=== PATIENT | female | born 1985 | race Caucasian/White ===

== ENCOUNTER 2024-12-19 22:00 | Emergency (ER) | payer OTHER, SELFPAY ==
[2024-12-19 22:00] VITALS: BP 118/77
[2024-12-19 22:23] LABS: Hematocrit 34.8 % (37.0-47.0); Hemoglobin 12.6 g/dL (12.0-16.0); Mean Corp Hgb Conc. 36.2 g/dL (33.0-37.0); Mean Corpuscular Volume 86.4 fL (81.0-99.0); Nucleated Red Blood Cells % 0 %; Platelet Count 236 10^3/uL (130-400); Red Cell Dist. Width 11.9 % (11.5-14.5)
[2024-12-19 22:41] LABS: HCG, Serum Qualitative Screen Negative
[2024-12-19 22:45] LABS: ALT (SGPT) 26 U/L (0-35); AST (SGOT) 24 U/L (14-36); Albumin 4.4 g/dl (3.5-5.0); Alkaline Phosphatase 49 U/L (38-126); Blood Urea Nitrogen 14 mg/dl (7-17); Calcium 8.8 mg/dl (8.4-10.2); Carbon Dioxide 25 mmol/L (22-30); Chloride 104 mmol/L (98-107); Glucose 92 mg/dl (70-99); Potassium 3.7 mmol/L (3.5-5.1); Sodium 136 mmol/L (135-145); Total Protein 7.2 g/dl (6.3-8.2); eGFR > 60.00
[2024-12-19 22:46] LABS: Troponin I < 0.012 ng/ml
[2024-12-20 00:01] VITALS: BMI 28.8
[2024-12-20 00:03] VITALS: BP 105/64
[2024-12-20 00:05] VITALS: BP 105/64
[2024-12-20 01:00] VITALS: BP 101/67
[2024-12-20 02:00] VITALS: BP 97/60
[2024-12-20 02:01] LABS: Glucose - Point of Care 86 mg/dl (70-99)
[2024-12-20 02:55] LABS: Troponin I < 0.012 ng/ml
--- NOTE | 2024-12-20 03:20 | ED.GENMED ---
History of Present Illness
General
Chief Complaint: Cardiac Symptoms
Source: patient
Exam Limitations: none
Time Seen by Provider: 12/20/24 01:12
Nursing documentation reviewed up to this point in time: agreed with
History of Present Illness
History of Present Illness:
39-year-old female presenting to the [facility] today after felt some chest discomfort with a low glucose level while at a concert prior to arrival. Feels much better at this point. Denies nausea vomiting shortness of breath. EKG normal on arrival.
She denies any recent trauma surgery immobilization
Review of Systems
Review of Systems
Allergies reviewed?: Yes
All Other Systems: ROS reviewed and negative except as documented in HPI and ROS
Phy Exam
Physical Exam
Physical Exam:
GENERAL: Alert , in no apparent distress
EYE: pupils equal and reactive
NECK: Supple, no significant adenopathy.
ENT: o/p clr, mmm.
CARDIAC: Regular rate and rhythm .
LUNGS: Clear breath sounds bilaterally, no acute respiratory distress, no wheezes/rales/rhonchi
ABDOMEN: Soft, without focal tenderness, no r/g, no cvat
NEUROLOGICAL: Alert and oriented, no focal neuro deficits
SKIN: Warm and dry, skin intact.
MUSCULOSKELETAL: No edema, well perfused.
PSYCH: Normal and appropriate interaction.
Course
Orders/Labs/Results
Orders:
Orders
12/19/24 22:01
Electrocardiogram (*1) Urgent
Reason for Study: Chest Pain
EKG- Treatment ONCE
12/19/24 22:02
Test Result ONCE
12/19/24 22:15
Complete Blood Count/With Diff Urgent
Comprehensive Metabolic Panel Urgent
HCG, Serum Qualitative Screen Urgent
Comment: Notify provider if positive test present
Troponin I Urgent
12/20/24 01:47
Electrocardiogram (*1) Urgent
Reason for Study: Chest Pain
Bedside Glucose- Treatment ONCE
EKG- Treatment ONCE
Chest [CR Chest - 2 Views ] Urgent
Comment:
Reason For Exam: cp
12/20/24 02:03
Troponin I Urgent
Abnormal Lab Results
12/19/24
22:15
RBC 4.03 L 10^6/uL
(4.20-5.40)
Hct 34.8 L %
(37.0-47.0)
MCH 31.3 H pg
(27.0-31.0)
Absolute Lymphs (auto) 0.7 L 10^3/uL
(1.2-3.4)
Neutrophils % 78.7 H %
(42.2-75.2)
Lymphocytes % 9.9 L %
(20.5-51.1)
12/19/24 22:15
12/19/24 22:15
Vital Signs
Initial and Last Documented VS:
Initial Vital Signs
Temp Pulse Resp BP Pulse Ox
98.3 F 80 16 118/77 100
12/19/24 22:00 12/19/24 22:00 12/19/24 22:00 12/19/24 22:00 12/19/24 22:00
Last Documented Vital Signs
Temp Pulse Resp BP Pulse Ox
98.3 F 69 15 97/60 97
12/19/24 22:00 12/20/24 02:15 12/20/24 02:15 12/20/24 02:00 12/20/24 03:22
MDM/Problems Addressed
MDM/Problems Addressed:
39-year-old female presenting to the emergency department today with concerns of chest pain low sugar level prior to arrival. Symptoms now resolved. Labs unremarkable here troponin negative x 2 EKG unchanged vital signs normal. Patient
well-appearing stable for close outpatient follow-up. Return precautions given.
*Pulse Oximetry
SaO2: 97
Oxygen Mode of Delivery: Room air
Patient hypoxic: no (97)
*Critical Care Note
Total Time (30-74mins, 75-104mins- exclusive of procedures): Not Applicable
ED Attending Note
-
Portions of this chart may have been created with voice recognition software.� Occasional wrong word or��sound alike� substitutions may have occurred due to the inherent limitations of voice recognition software.
Discharge Plan
Departure
Patient Disposition: Home (Routine Discharge)
Date of Disposition: 12/20/24
Time of Disposition: 03:20
Patient with high blood pressure during this ER visit?: No
Condition: Good
Covid-19: Not Applicable
Discharge Problem:
Chest pain
Instructions: Chest Pain (DC)
Prescriptions:
No Action
Wegovy 2.4 mg/0.75 mL Pen Injector
2.4 mg SC QWEEK
Rx Instructions:
takes on wednesdays
Referrals:
UNKNOWN - PT DOES,NOT KNOW [Family Provider]
Activity Restrictions/Additional Instructions:
You came to the emergency department today with concerns of chest pain and low glucose prior to arrival. Here you had a reassuring assessment. Please follow closely with your primary care doctor. Return for any worsening, new or concerning
symptoms.
Interventions
Interventions:
*Risk Screen - Suicide Last Done: 12/19/24 22:00
*General Assessment Last Done: 12/20/24 00:01
*Neglect/Abuse Screening Last Done: 12/19/24 22:00
*ED- Fall Risk Assessment Last Done: 12/19/24 22:00
*ED COVID-19 Vaccine History Last Done: 12/20/24 00:01
ED- Pulmonary Assessment Last Done: 12/20/24 00:01
ED- Cardiac Assessment Last Done: 12/20/24 00:01
Discharge Date and Time
Print Language: ALGERIAN
== END 2024-12-20 03:49 | disposition home or self-care (01) ==
LOC: EMR 22:00
PROVIDERS: Physician Assistant; Student in an Organized Health Care Education/Training Program; EMERGENCY PHYSICIAN Emergency Medicine
DX: R07.89 Other chest pain (principal); E16.2 Hypoglycemia, unspecified; K76.0 Fatty (change of) liver, not elsewhere classified; Z91.018 Allergy to other foods
CPT/HCPCS: 99284; 71046; 80053; 82962; 84484; 84703; 85025; 93005